=== PATIENT | male | born 1955 | race Caucasian/White ===

== ENCOUNTER 2022-06-27 11:52 | Emergency (ER) | payer OTHER ==
[~2022-06-27] VITALS: Ht 180.3 cm; Wt 92.0 kg
[2022-06-27] MEDS ORDERED: HYDR-4902 PO (15:06)
[2022-06-27] MEDS ORDERED: DOXE25CA2 PO (15:06)
[2022-06-27] MEDS ORDERED: LOSA-39 PO (15:06)
[2022-06-27] MEDS ORDERED: ONDANSETRON ODT 4 MG TAB PO ONE (15:15)
[2022-06-27] MEDS ORDERED: MORPHINE SULFATE 4 MG/ML SYR/VIAL IM ONE (15:15)
[2022-06-27 15:18] VITALS: BP 163/97
== END 2022-06-27 15:31 | disposition home or self-care (01) ==
LOC: ER 11:52
DX: S46.911A Strain of unspecified muscle, fascia and tendon at shoulder and upper arm level, right arm, initial encounter (principal); I10 Essential (primary) hypertension; F32.9 Major depressive disorder, single episode, unspecified; Z79.899 Other long term (current) drug therapy; X58.XXXA Exposure to other specified factors, initial encounter; Y93.89 Activity, other specified; Y92.89 Other specified places as the place of occurrence of the external cause; Y99.8 Other external cause status
CPT/HCPCS: 73030; 96372; 99283; J2270; Q0162